=== PATIENT | male | born 1965 | race Caucasian/White ===

== ENCOUNTER 2023-04-13 13:16 | Outpatient (CLI) | payer OTHER, SELFPAY ==
--- NOTE | 2023-04-13 13:30 | USCV_ITS ---
Aashish Isaacs Age: 58 Gender: M : 1965 Exam Date: 04/13/2023 13:28 Ordering Phys: Eber Ramirez MD (Andy) ([email or web address]) Technologist: CT Exam Location: [facility] [place]ication: HISTORY: PROCEDURES: FINDINGS: dvt in prx rt ptv, diffuse reflux throughout on rt in superficial and deep system, nonoccluding thrombus in rt gsv throughout Echogenic material was noted in the lumen of the proximal posterior tibial vein on the right side. Echogenic material was noted in the greater saphenous vein throughout the greater saphenous vein, causing partial occlusion. Significant venous reflux of greater than 1000 ms were noted at the common femoral, femoral and popliteal veins on the right side. Reflux time of greater than 5 ms were noted throughout the greater saphenous vein segments on the right side including the saphenofemoral junction. Reflux time of greater than 500 ms also were noted at the proximal small saphenous vein CONCLUSIONS 1. Deep vein thrombosis causing partial occlusion was noted at the proximal posterior tibial vein on the right side. 2. Superficial vein thrombosis was noted throughout the greater saphenous venous system on the right side including the saphenofemoral junction, causing partial occlusion. 3. Significant reflux of greater than 1000 ms were noted at the common femoral, femoral and popliteal veins on the right side. 4. Significant venous reflux of greater than 500 ms were noted throughout the greater saphenous vein segments on the right side, including the saphenofemoral junction 5. Significant venous reflux of greater than 500 milliseconds also was noted at the proximal segment of the small saphenous vein on the right side. 6. The superficial veins were found to be dilated measuring anywhere from 0.43-1.39 on the right side 7. No DVT was noted on the left side. 8. No significant venous reflux either in the deep or in the superficial veins on the left side 9. The superficial vein segments were found to be less than 1 cm deep from the surface on the right side 10. No similar previous studies are available for comparison Dr Jayesh Reagan MD [facility] (Electronically Signed) Final Date: 13 April 2023 18:36 S
== END 2023-04-13 13:17 | disposition home or self-care (01) ==
PROVIDERS: Visit Provider Thoracic Surgery (Cardiothoracic Vascular Surgery)
DX: I83.893 Varicose veins of bilateral lower extremities with other complications (principal); I82.441 Acute embolism and thrombosis of right tibial vein; I82.811 Embolism and thrombosis of superficial veins of right lower extremity; I87.2 Venous insufficiency (chronic) (peripheral); M79.89 Other specified soft tissue disorders
CPT/HCPCS: 93970